=== PATIENT | female | born 1975 | race Caucasian/White ===

== ENCOUNTER 2023-12-01 06:15 | Day surgery (SDC) | payer BC ==
[2023-12-01] MEDS: Lactated Ringers 1,000 ML IV SCH (06:30)
[2023-12-01] MEDS ORDERED: Lidocaine 1% 5 ML VIAL ONE (06:35)
[2023-12-01] MEDS ORDERED: Propofol 200 MG/20 ML SDV ONE (06:36)
[2023-12-01] MEDS ORDERED: fentaNYL 100 MCG/2 ML SDV ONE (06:36)
[2023-12-01] MEDS ORDERED: Midazolam 1 MG/ML 2 ML SDV ONE (06:36)
[2023-12-01] MEDS ORDERED: Sodium Chloride 0.9% 10 ML Syringe FLUSH PRN (07:00)
[2023-12-01] MEDS ORDERED: Sodium Chloride 0.9% 10 ML Syringe FLUSH SCH (07:00)
[2023-12-01] MEDS ORDERED: Ondansetron 4 MG/2 ML SDV ONE (07:08)
[2023-12-01] MEDS: Bupivacaine 0.25% 10 ML SDV ONE (07:17)
[2023-12-01] MEDS: Lidocaine 1% 10 ML MDV ONE (07:17)
[2023-12-01] MEDS ORDERED: Ketorolac 30 MG/ML SDV ONE (07:25)
[2023-12-01] MEDS: Triamcinolone Acetonide 40 MG/ML 1 ML SDV ONE (07:25)
== END 2023-12-01 08:36 | disposition home or self-care (01) ==
LOC: JD.SDS 06:15
PROVIDERS: ATTEND Orthopaedic Surgery
DX: G56.13 Other lesions of median nerve, bilateral upper limbs (principal); G56.03 Carpal tunnel syndrome, bilateral upper limbs
CPT/HCPCS: 20526; 64721; J0665; J1885; J2250; J2405; J2704; J3010; J3301; J7120; 01810; J3490

== ENCOUNTER 2024-05-13 06:15 | Day surgery (SDC) | payer BC ==
[~2024-05-13 06:15] MED LIST: Ketorolac 30 MG/ML SDV ONE; Lidocaine 1% 5 ML VIAL ONE; Midazolam 1 MG/ML 2 ML SDV ONE; Propofol 200 MG/20 ML SDV ONE; Sodium Chloride 0.9% 10 ML Syringe FLUSH PRN; Sodium Chloride 0.9% 10 ML Syringe FLUSH SCH; fentaNYL 100 MCG/2 ML SDV ONE
[2024-05-13] MEDS: Lactated Ringers 1,000 ML IV SCH (06:25)
[2024-05-13] MEDS: Bupivacaine 0.25% 10 ML SDV ONE (09:12)
[2024-05-13] MEDS: Lidocaine 1% 10 ML MDV ONE (09:13)
== END 2024-05-13 08:30 ==
LOC: JD.SDS 06:15
PROVIDERS: ATTEND Orthopaedic Surgery
DX: G56.12 Other lesions of median nerve, left upper limb (principal); E66.9 Obesity, unspecified
CPT/HCPCS: 64721; J0665; J1885; J2250; J2704; J3010; J7120; J3490

== ENCOUNTER 2024-10-28 06:00 | Day surgery (SDC) | payer BC ==
[2024-10-28] MEDS ORDERED: fentaNYL 100 MCG/2 ML SDV ONE (06:21)
[2024-10-28] MEDS ORDERED: Propofol 200 MG/20 ML SDV ONE ×3 (06:21→11:44)
[2024-10-28] MEDS ORDERED: Midazolam 1 MG/ML 2 ML SDV ONE (06:21)
[2024-10-28] MEDS ORDERED: Ketamine 200 MG/20 ML MDV ONE (06:24)
[2024-10-28] MEDS: Lactated Ringers 1,000 ML IV SCH (06:30)
[2024-10-28] MEDS ORDERED: HYDROmorphone 0.5 MG/0.5 ML Syringe IVPUSH PRN (06:37)
[2024-10-28] MEDS ORDERED: Ondansetron 4 MG/2 ML SDV IVPUSH PRN (06:37)
[2024-10-28] MEDS ORDERED: fentaNYL 100 MCG/2 ML SDV IVPUSH PRN (06:37)
[2024-10-28] MEDS ORDERED: Sodium Chloride 0.9% 10 ML Syringe FLUSH PRN (06:40)
[2024-10-28] MEDS: Bupivacaine 0.25% 10 ML SDV ONE (07:09)
[2024-10-28] MEDS: Lidocaine 1% 30 ML SDV ONE (07:09)
[2024-10-28] MEDS: Acetaminophen 325 MG Tab PO ONE (08:09)
[2024-10-28] MEDS ORDERED: Sodium Chloride 0.9% 10 ML Syringe FLUSH SCH (09:00)
== END 2024-10-28 09:04 | disposition home or self-care (01) ==
LOC: JD.SDS 06:00
PROVIDERS: ATTEND Orthopaedic Surgery
DX: M65.842 Other synovitis and tenosynovitis, left hand (principal); M65.312 Trigger thumb, left thumb
CPT/HCPCS: 26055; A9270; J0665; J2003; J2250; J2704; J3010; J3490; J7120; 01810